=== PATIENT | male | born 1955 | race Asian ===

== ENCOUNTER → 2016-08-03 | Outpatient (CLI) | payer OTHER ==
--- NOTE | 2016-08-04 19:34 | SLEEP ---
DATE OF STUDY: 08/03/2016 ATTENDING PHYSICIAN: Dr. Fausto Hill. The patient is 60 years old who weighs 139 pounds with a BMI of 25. The patient's [place] score was 5. A split night study was performed at [facility]. During the night study, the patient spent 451 minutes in bed and slept for 368 minutes with a sleep efficiency of 82%. Sleep latency was 21 minutes with a REM latency of 48 minutes. Overall, sleep architecture showed increased stage I and stage II sleep, normal slow wave and reduced REM sleep. During the initial diagnostic portion of the study, the patient slept for 153 minutes. During this time, there were 10 obstructive apneas, 3 mixed apneas and no central apneas. There were 65 hypopneas. The patient's apnea-hypopnea index was 31 per hour, supine index 38 per hour and REM index of 68 per hour. Review of nocturnal oximetry study revealed a mean oxygen saturation of 94% with the lowest of 69%, 10% time oxygen saturation remained between 80% and 89%. EKG monitoring revealed average heart rate of 62 beats per minute. No sustained arrhythmias were observed. PLMS were not seen. The patient met the split night criteria for CPAP initiation. This was started at 5 cm of water and titrated up to 9 cm of water. At the final pressure, the patient had 76 minutes of sleep. Supine as well as REM sleep was observed. AHI was reduced to 0 per hour. The patient's oxygen saturation remained above 92%. The patient used small sized nasal pillows. IMPRESSION: 1. Severe sleep apnea-hypopnea syndrome with an apnea-hypopnea index of 31 per hour. 2. Nocturnal hypoxia secondary to obstructive sleep apnea, but resolved with CPAP. 3. No clinically significant periodic limb movements of sleep. RECOMMENDATIONS: 1. CPAP at 9 cm water completely eliminate the patient's sleep apnea, should be used on a nightly basis. 2. Follow up in 4-6 weeks to assess compliance with CPAP and to document clinical improvement. 3. Avoid PATIENT SAFETY COORDINATOR depressants. 4. Caution regarding driving until symptoms of sleep apnea resolve with the use of CPAP. ELIZABETH DOLL MD DR: NICA/sebastián JOB#: [id number] / [id number] ERLIN Lehman MD
== END | disposition home or self-care (01) ==
LOC: SLPLAB 18:32
PROVIDERS: ATTEND Family Medicine
DX: G47.33 Obstructive sleep apnea (adult) (pediatric) (principal); Q79.6 Ehlers-Danlos syndromes
CPT/HCPCS: 95810